=== PATIENT | female | born 1995 | race American Indian/Alaskan Native ===

== ENCOUNTER 2018-09-26 19:02 | Emergency (ER) | payer SELFPAY ==
--- NOTE | 2018-09-26 20:13 | Emergency Department Report ---
HPI - General Chief Complaint: Skin/Abscess/Foreign Body Time Seen by Provider: 09/26/18 20:06 - HPI HPI: Room 25 The patient is a 23-year-old female presenting with a chief complaint of "boil on leg." The patient says she's had a "boil" on her left leg approximately 3 days. Patient denies recent shaving in the region or recent injury. Patient denies history of fever. Patient states that "boil" has not drained. Location: Left thigh Duration: 3 Days Quality: Pain Severity: Moderate Modifying factors: [see above] Context: [see above] Mode of transportation: [not driving] ED Past Medical Hx - Past Medical History Previous Medical History?: No - Surgical History Past Surgical History?: No - Family History Family history: no significant - Social History Smoking Status: Current Every Day Smoker (1/2 pack per day) Substance Use Type: None (denies illicit drug use) - Medications Home Medications: Home Medications Medication Instructions Recorded Confirmed Last Taken Type HYDROcodone/APAP 5-325 [[place] 1 - 2 each PO Q6HR PRN #14 tablet 09/26/18 Unknown Rx 5/325] Ibuprofen [Motrin 800 MG tab] 800 mg PO Q8HR PRN #20 tablet 09/26/18 Unknown Rx Sulfamethoxazole/Trimethoprim 1 each PO BID #20 tablet 09/26/18 Unknown Rx [Bactrim DS TAB] ED Review of Systems ROS: Stated complaint: BOIL Other details as noted in HPI Constitutional: denies: fever Eyes: denies: eye pain ENT: denies: throat pain Respiratory: no symptoms reported Cardiovascular: denies: chest pain Endocrine: no symptoms reported Gastrointestinal: denies: abdominal pain Genitourinary: denies: dysuria Musculoskeletal: denies: back pain Skin: lesions Psychiatric: denies: anxiety Physical Exam - Physical Exam Vital Signs: Vital Signs 09/26/18 19:08 Temperature 98.3 F Pulse Rate 103 H Respiratory 18 Rate Blood Pressure 138/85 O2 Sat by Pulse 100 Oximetry Physical Exam: GENERAL: The patient is well-developed well-nourished female lying on stretcher not appear to be in acute distress. [] HEENT: Normocephalic. Atraumatic. Extraocular motions are intact. Patient has moist mucous membranes. NECK: Supple. Trachea midline CHEST/LUNGS: There is no respiratory distress noted. HEART/CARDIOVASCULAR: Regular. There is no tachycardia. There is no gallop rub or murmur. ABDOMEN: There is no abdominal distention. SKIN: There is an approximately 3 x 5 cm region of fluctuance and tenderness to palpation to the medial aspect of the left thigh consistent with an abscess. NEURO: The patient is awake, alert, and oriented. The patient is cooperative. The patient has normal speech and gait. MUSCULOSKELETAL: There is no evidence of acute injury. ED Course Vital Signs 09/26/18 19:08 Temperature 98.3 F Pulse Rate 103 H Respiratory 18 Rate Blood Pressure 138/85 O2 Sat by Pulse 100 Oximetry - I & D Left Upper Thigh Type of Procedure: Simple Site: medial left thigh Blade Size: 11 I & D Procedure: betadine prep, gauze wick placed Progress: Approximately 4mls purulent foul-smelling discharge expressed. Wound copiously irrigated with normal saline and then packed with one-inch iodoform gauze ED Medical Decision Making - Differential Diagnosis abscess Critical care attestation.: If time is entered above; I have spent that time in minutes in the direct care of this critically ill patient, excluding procedure time. ED Disposition Clinical Impression: Abscess of left thigh Disposition: DC-01 TO HOME OR SELFCARE Is pt being admited?: No Does the pt Need Aspirin: No Condition: Stable Instructions: Abscess Incision and Drainage (ED), Abscess (ED) Additional Instructions: You should return to the emergency department or follow-up with your primary doctor in 48 hours for reevaluation of your abscess. Return to the emergency department immediately should you develop worsening symptoms, fever, inability to tolerate food or liquid or any other concerns. Prescriptions: Sulfamethoxazole/Trimethoprim [Bactrim DS TAB] 1 each PO BID #20 tablet Ibuprofen [Motrin 800 MG tab] 800 mg PO Q8HR PRN #20 tablet PRN Reason: Pain, Moderate (4-6) HYDROcodone/APAP 5-325 [[place] 5/325] 1 - 2 each PO Q6HR PRN #14 tablet PRN Reason: Pain Referrals: GEORGE ROBERTS MD [Staff Physician] - 3-5 Days Time of Disposition: 21:27
[2018-09-26] MEDS ORDERED: NORCO 5/325 PO ONE (20:31)
[2018-09-26] MEDS ORDERED: IBUPROFEN PO ONE (20:31)
[2018-09-26] MEDS ORDERED: XYLOCAINE 1%/ EPI 1:100,000 INFILTRATI ONE (20:36)
[2018-09-26] MEDS ORDERED: NACL 0.9% 500 ML IR ONE (20:37)
[2018-09-26 21:53] VITALS: BP 125/81
== END 2018-09-26 21:52 | disposition home or self-care (01) ==
LOC: ED 19:02
DX: L02.416 Cutaneous abscess of left lower limb (principal); F17.200 Nicotine dependence, unspecified, uncomplicated; Z79.899 Other long term (current) drug therapy
CPT/HCPCS: 87116; 99282

== ENCOUNTER 2018-09-29 20:54 | Emergency (ER) | payer SELFPAY ==
--- NOTE | 2018-09-29 21:11 | Event Note ---
ED Screening Note Date of service: 09/29/18 Time: 21:11 ED Screening Note: 23 y/o female comes in for wound check. This initial assessment/diagnostic orders/clinical plan/treatment(s) is/are subject to change based on patients health status, clinical progression and re- assessment by fellow clinical providers in the ED. Further treatment and workup at subsequent clinical providers discretion. Patient/guardian urged not to elope from the ED as their condition may be serious if not clinically assessed and managed. Initial orders include:
--- NOTE | 2018-09-29 21:56 | Emergency Department Report ---
Suture/Staple Removal - [facility] Chief Complaint: Skin/Abscess/Foreign Body Stated Complaint: RECHECK/REMOVAL Time Seen by Provider: 09/29/18 21:31 When Sutures or [place] Placed: 3 days Wound Location: left upper thigh ED Review of Systems ROS: Stated complaint: RECHECK/REMOVAL Other details as noted in HPI Constitutional: denies: chills, fever Eyes: denies: eye pain, eye discharge, vision change ENT: denies: ear pain, throat pain Respiratory: denies: cough, shortness of breath, wheezing Cardiovascular: denies: chest pain, palpitations Endocrine: no symptoms reported Gastrointestinal: denies: abdominal pain, nausea, diarrhea Genitourinary: denies: urgency, dysuria, discharge Musculoskeletal: denies: back pain, joint swelling, arthralgia Skin: denies: rash, lesions Neurological: denies: headache, weakness, paresthesias Psychiatric: denies: anxiety, depression Hematological/Lymphatic: denies: easy bleeding, easy bruising ED Past Medical Hx - Past Medical History Previous Medical History?: No - Surgical History Past Surgical History?: No - Social History Smoking Status: Current Every Day Smoker Substance Use Type: None - Medications Home Medications: Home Medications Medication Instructions Recorded Confirmed Last Taken Type HYDROcodone/APAP 5-325 [[place] 1 - 2 each PO Q6HR PRN #14 tablet 09/26/18 Unknown Rx 5/325] Ibuprofen [Motrin 800 MG tab] 800 mg PO Q8HR PRN #20 tablet 09/26/18 Unknown Rx Sulfamethoxazole/Trimethoprim 1 each PO BID #20 tablet 09/26/18 Unknown Rx [Bactrim DS TAB] Suture Removal Exam - Exam General: Vital signs noted. No distress. Alert and acting appropriately. No swelling. No induration. No swelling. Wound: Yes Drainage, No Pathologic Erythema, No Tenderness, No Pus, No Wound De hiscence Other Systems: All other systems reviewed and are unremarkable. ED Course Vital Signs 09/29/18 21:11 Temperature 98.2 F Pulse Rate 81 Respiratory 18 Rate Blood Pressure 159/93 O2 Sat by Pulse 100 Oximetry - Reevaluation(s) Reevaluation #1: 09/29/18 21:57 Patient is speaking in full sentences with no signs of distress noted. ED Recheck MDM - Medical Decision Making This is a 23-year-old female that presents with packing removal. She is stable and was examined by me. No swelling. No abscess noted. 1 inch packing removed. PAtient stated is taking antibiotics. Patient was referred to Follow- up with a primary care doctor in 3-5 days or if symptoms worsen and continue return to emergency room as soon as possible. At time of discharge, the patient does not seem toxic or ill in appearance. No acute signs of distress noted. Patient agrees to discharge treatment plan of care. No further questions noted by the patient. Critical care attestation.: If time is entered above; I have spent that time in minutes in the direct care of this critically ill patient, excluding procedure time. ED Disposition Clinical Impression: Abscess packing removal Disposition: DC- TO HOME OR SELFCARE Is pt being admited?: No Does the pt Need Aspirin: No Condition: Stable Additional Instructions: Follow-up with a primary care doctor in 3-5 days or if symptoms worsen and continue return to emergency room as soon as possible. Continue taking antibiotics as prescribed to during your previous visit. Referrals: PRIMARY MD PIPE [Referring] - 3-5 Days STEPHANIE FITZPATRICK MD [Staff Physician] - 3-5 Days [facility] [Outside] - 3-5 Days Forms: Work/School Release Form(ED)
[2018-09-29 22:09] VITALS: BP 122/82
== END 2018-09-29 22:10 | disposition home or self-care (01) ==
LOC: ED 20:54
DX: Z48.01 Encounter for change or removal of surgical wound dressing (principal); T14.8XXD Other injury of unspecified body region, subsequent encounter